=== PATIENT | female | born 1970 | race Caucasian/White ===

== ENCOUNTER → 2017-05-27 | Outpatient (CLI) | payer BC ==
[~2017-05-27] MED LIST: BUPR75TA5 PO; TOPI25TA52 PO
--- NOTE | 2017-05-27 13:06 | RAD ---
DATE: 05/27/2017 EXAM: DIGITAL SCREEN BILAT W/CAD HISTORY: Routine screening COMPARISON: None available This study was interpreted with the benefit of Computerized Aided Detection (CAD). The breast parenchyma is heterogeneously dense, which could reduce sensitivity of mammography. Breast parenchyma level C. FINDINGS: The fibroglandular densities in the breasts are heterogeneously dense and mildly distorted, probably related to previous breast reduction surgery. No discrete mass is identified. A few faint scattered microcalcifications are noted. There is a cluster of microcalcifications in the upper outer quadrant of the left breast. A tiny benign-appearing lymph node type densities projected over the left axillary region. IMPRESSION: 1. Small cluster of microcalcifications in the left breast. Magnification and straight mediolateral views are suggested for further evaluation. 2. Mild bilateral breast distortion is probably postsurgical. BI-RADS CATEGORY: 0 INCOMPLETE: NEEDS ADDITIONAL IMAGING EVALUATION AND/OR PRIOR MAMMOGRAMS FOR COMPARISON. RECOMMENDED FOLLOW-UP: ADD ADDITIONAL IMAGING PQRS compliance statement: Patient information was entered into a reminder system with a target due date for the next mammogram. Mammography is a sensitive method for finding small breast cancers, but it does not detect them all and is not a substitute for careful clinical examination. A negative mammogram does not negate a clinically suspicious finding and should not result in delay in biopsying a clinically suspicious abnormality. "Our facility is accredited by the [employer] Mammography Program."
== END | disposition home or self-care (01) ==
LOC: MAMMO 10:57
PROVIDERS: ATTEND Physician Assistant Medical
DX: Z12.31 Encounter for screening mammogram for malignant neoplasm of breast (principal)
CPT/HCPCS: G0202; 77067

== ENCOUNTER → 2017-05-30 | Outpatient (CLI) | payer BC ==
--- NOTE | 2017-06-02 13:50 | RAD ---
DATE: 05/30/2017 EXAM: DIGITAL DIAGNOSTIC LT HISTORY: Left breast calcifications. COMPARISON: 05/27/2017. This study was interpreted with the benefit of Computerized Aided Detection (CAD ). FINDINGS: Magnification CC, MLO as well as conventional 90 degrees lateral view was obtained. There is a tightly clustered area of microcalcifications noted in the upper outer left breast, corresponding to the screening mammogram. Many of these are punctate, however, there is questionable pleomorphism as well as. Biopsy is recommended. No associated soft tissue mass is seen. Breast Density: HETERO The breast parenchyma is heterogeneously dense, which could reduce sensitivity of mammography. Breast parenchyma level C. IMPRESSION: Cluster of microcalcifications upper outer left breast, posterior depth. These are indeterminate. Stereotactic biopsy is recommended. BI-RADS CATEGORY: 4 SUSPICIOUS ABNORMALITY- BIOPSY SHOULD BE CONSIDERED RECOMMENDED FOLLOW-UP: PQRS compliance statement: Patient information was entered into a reminder system with a target due date for the next mammogram. Mammography is a sensitive method for finding small breast cancers, but it does not detect them all and is not a substitute for careful clinical examination. A negative mammogram does not negate a clinically suspicious finding and should not result in delay in biopsying a clinically suspicious abnormality. "Our facility is accredited by the [employer] Mammography Program." MTDD
== END | disposition home or self-care (01) ==
LOC: MAMMO 14:06
PROVIDERS: ATTEND Physician Assistant Medical
DX: R92.0 Mammographic microcalcification found on diagnostic imaging of breast (principal)
CPT/HCPCS: G0206; 77065